=== PATIENT | female | born 1995 | race Caucasian/White ===

== ENCOUNTER 2022-07-08 20:25 | Inpatient (IN) ==
[2022-07-08] MEDS ORDERED: OXYTOCIN 30 UNITS/500 ML BAG IV PRN (21:14)
[2022-07-08] MEDS ORDERED: LIDOCAINE 1% LOCAL 20 ML VIAL INFIL PRN (21:14)
--- NOTE | 2022-07-08 21:18 | History & Physical Report ---
Date of Service July 08, 2022 Assessment & Plan (1) Supervision of normal intrauterine in primigravida: Plan: Admit to L&D. EFM/toco. Labs. IV fluids. OK for epidural when she desires. History of Present Illness Chief Complaint: labor Primary Care Provider: LYNDSEY PCP 26yo @ 39 6/7, spontaneous labor. Contractions getting stronger throughout the day. No leaking fluid. No vaginal bleeding. +FM Allergies Allergy/AdvReac Type Severity Reaction Status Date / Time nickel Allergy Rash Verified 07/08/22 20:39 Home Medications Medication Instructions Recorded Confirmed Type prenat.vits,rosmery,msi-hokh-olexj 1 tab PO DAILY 12/01/21 07/08/22 History aspirin 81 mg chewable tablet 81 mg PO DAILY 07/01/22 07/08/22 History Patient History Medical History (Updated 07/08/22 @ 20:38 by Rebekah Davis RN) No known health problems Family History Father Diabetes Social History (Updated 12/01/21 @ 07:42 by Kriss Koroma) Smoking Status: Never smoker Do You Dip or Chew Tobacco: No; Hx Alcohol Use: No Hx Substance Use: No Preferred Language: [place] Communication Ability: Effective Director Motion Picture Required: Voice Beliefs That Will Affect Care: None marital status: marital status details: Amor (25) [phone] Current Living Situation: Spouse Current Living Situation Comment: lives with spouse, 1 dog. current occupational status: student current occupation: finishing up Master's degree. Other Information That Helps Us Care for You: No Feels Safe at Home: Yes Safety Concerns: Feels Safe At This Time Assistive Devices: Glasses Review of Systems All systems reviewed & are unremarkable except as noted in HPI & below Physical Exam Physical Exam: FHT Cat 1 [place] Q1-2 SVE 6/100/-1, bulging membranes Constitutional: WD/WN, vitals as above Respiratory: normal respiratory effort, lungs clear to auscultation no respiratory distress Cardiovascular: Rate/Rhythm: regular rate and regular rhythm Gastrointestinal (Abdomen): Inspection/Auscultation: abdomen normal to inspection Percussion/Palpation: abdomen soft; abdomen nontender Gravid. No s/s chorio or abruption. Skin: no rashes, warm and dry Psychiatric: A+Ox3, euthymic affect Results & Data Vital Signs (Past 12 Hours) Vital Signs Temp Pulse Resp BP 07/08/22 20:40 36.6 C 18 07/08/22 20:35 61 137/81 Coding Level of Care Code None Diagnoses Supervision of normal intrauterine in primigravida Z34.00
[2022-07-08] MEDS: LACTATED RINGER'S 1,000 ML IV PRN ×2 (21:20→22:21)
[2022-07-08] MEDS ORDERED: fentaNYL citrate PF 100 MCG/2 ML VIAL ONE (21:29)
[2022-07-08] MEDS ORDERED: SODIUM CHLORIDE 0.9% PF INJ 10 ML VIAL ONE (21:29)
[2022-07-08] MEDS ORDERED: ePHEDrine sulfate 50 MG/ML AMP ONE (21:29)
[2022-07-08] MEDS ORDERED: BUPIVACAINE 0.25% PF 30 ML VIAL ONE (21:29)
[2022-07-08] MEDS ORDERED: LIDOCAINE 2%/EPINEPHRINE 1:200,000 20 ML PF ONE (21:30)
[2022-07-08] MEDS ORDERED: fentaNYL 2MCG/ML ROPIVACAINE 1.25MG/ML 100 ML BAG EPI ONE (21:30)
[2022-07-08 21:59] LABS: Hematocrit (blood only) 34.1 % (37.0-47.0); Hemoglobin 11.5 g/dl (12.0-16.0); Mean Corpuscular Hemoglobin 28.3 pg (25.0-34.0); Mean Corpuscular Hgb Conc 33.7 g/dL (32.0-36.0); Mean Corpuscular Volume 83.8 fL (80.0-100.0); Mean Platelet Volume 10.9 fL (9.4-12.4); Platelet Count 185 K/uL (130-400); RDW Coefficient of Variation 14.5 % (11.5-14.5); RDW Standard Deviation 44.2 fL (36.4-46.3); Red Blood Count 4.07 M/uL (4.20-5.40); White Blood Count 15.61 K/ul (4.8-10.8)
--- NOTE | 2022-07-08 22:53 | Anesthesiology Consultation ---
Date of Service July 08, 2022 Assessment & Plan Chart Review Chart Review: Acceptable Risk for Labor Epidural Consults Requested none History Height/Weight Height: 5 ft 7 in Weight: 83.007 kg Allergies Allergy/AdvReac Type Severity Reaction Status Date / Time nickel Allergy Rash Verified 07/08/22 20:39 Medications Home Medications Medication Instructions Recorded Confirmed Last Taken prenat.vits,rosmery,bcp-dehm-liioe 1 tab PO DAILY 12/01/21 07/08/22 07/07/22 aspirin 81 mg chewable tablet 81 mg PO DAILY 07/01/22 07/08/22 07/07/22 Active Medications Generic Name Dose Route Start Last Admin Trade Name Freq PRN Reason Stop Dose Admin Lactated Ringer's 1,000 mls @ 125 mls/hr 07/08/22 21:14 07/08/22 22:21 Lr IV 07/10/22 21:13 125 mls/hr .Q8H PRN Administration L&D Protocol Protocol Past Medical History Medical History (Updated 07/08/22 @ 20:38 by Rebekah Davis RN) No known health problems Past Family History Family History Father Diabetes Social History Smoking Status: Never smoker Do You Dip or Chew Tobacco: No Hx Alcohol Use: No Hx Substance Use: No substance use type: does not use Physical Exam Vital Signs Last Vital Signs Temp 36.6 C 07/08/22 22:14 Pulse 83 07/08/22 22:50 Resp 18 07/08/22 22:46 BP 107/57 L 07/08/22 22:50 Pulse Ox 96 07/08/22 22:47 Testing Laboratory Results 07/08/22 21:23
[2022-07-08] MEDS ORDERED: LIDOCAINE 2%/EPINEPHRINE 1:200,000 20 ML PF EPI STA (22:54)
[2022-07-08] MEDS ORDERED: BUPIVACAINE 0.25% PF 30 ML VIAL EPI PRN (22:54)
[2022-07-08] MEDS ORDERED: diphenhydrAMINE 50 MG/ML VIAL IV PRN (22:54)
[2022-07-08] MEDS ORDERED: ROPIVACAINE 0.5% PF 5 MG/ML 20 ML VIAL EPI PRN (22:54)
[2022-07-08] MEDS ORDERED: SODIUM CHLORIDE 0.9% PF INJ 10 ML VIAL EPI STA (22:54)
[2022-07-08] MEDS ORDERED: NALOXONE HCL 1 MG in SODIUM CHLORIDE 0.9% 1000ML 1,000 ML IV PRN (22:54)
[2022-07-08] MEDS ORDERED: SODIUM CHLORIDE 0.9% PF INJ 10 ML VIAL EPI PRN (22:54)
[2022-07-08] MEDS ORDERED: ONDANSETRON INJ 2 MG/ML 2 ML VIAL IV PRN (22:54)
[2022-07-08] MEDS ORDERED: NALOXONE HCL 0.4 MG/1 ML VIAL/CARP IV PRN (22:54)
[2022-07-08] MEDS ORDERED: NALBUPHINE HCL INJ 10 MG/ML AMP IV PRN (22:54)
[2022-07-08] MEDS ORDERED: ePHEDrine sulfate 50 MG/ML AMP IV PRN (22:54)
[2022-07-08] MEDS ORDERED: fentaNYL citrate PF 100 MCG/2 ML VIAL EPI PRN (22:54)
[2022-07-08] MEDS ORDERED: BUPIVACAINE 0.25% PF 30 ML VIAL EPI STA (22:54)
[2022-07-08] MEDS ORDERED: LIDOCAINE 2% MPF LOCAL 5 ML VIAL EPI PRN (22:54)
[2022-07-08] MEDS ORDERED: fentaNYL 2MCG/ML ROPIVACAINE 1.25MG/ML 100 ML BAG EPI PRN (22:54)
[2022-07-08] MEDS ORDERED: fentaNYL citrate PF 100 MCG/2 ML VIAL EPI STA (22:54)
--- NOTE | 2022-07-09 02:51 | Delivery Summary ---
Vaginal Delivery Summary Date of Service July 09, 2022 Vaginal Delivery Summary and 2nd Degree LAC Vaginal Delivery Summary: Pre-delivery diagnoses: 26yo @ 40 0/7, spontaneous labor Post-delivery diagnoses: same Procedure: spontaneous vaginal delivery, repair of 2nd degree perineal laceration Surgeon: Ju Tomlin DO Complications: none Findings: Viable male . Apgars: 8/9. Weight pending, please see nursery records Estimated blood loss: 300ml Description of delivery: The patient progressed to complete with epidural anesthesia. She then began to push. She spontaneously vaginally delivered a viable from the cephalic presentation. The head delivered in TYRA position. Tight nuchal, unable to reduce - delivered through. The anterior shoulder delivered, followed by the posterior shoulder, followed by the body. The baby was placed on mother's abdomen and a spontaneous cry was heard. Delayed cord clamping was employed, and the cord was doubly clamped and cut. Cord blood was obtained. The placenta was delivered spontaneously intact with a 3-vessel cord. The uterus and vagina were swept of clots and debris. IV pitocin was given. The uterus became firm. The cervix, vagina, and perineum were inspected and a 2nd degree perineal laceration was noted. The anal sphincter muscle was intact. The anal sphincter muscle's fascia was reapproximated with a figure of eight stitch of 3-0 Chromic. The remaining laceration was reapproximated with 3-0 Vicryl. Excellent hemostasis was observed. The mother and baby are recovering in stable and good condition in the room. Sponge, needle and instrument counts were correct x 2. Ju Tomlin DO [facility] V[facility] Delivery Charge Vaginal Delivery Codes: 94511 global code for the antepartum, delivery, and post- Delivery Type Details: and 2nd Degree LAC
[2022-07-09] MEDS ORDERED: MEASLES, MUMPS & RUBELLA VIRUS VIAL SQ ONE (03:01)
[2022-07-09] MEDS ORDERED: oxyCODONE/ACETAMINOPHEN 5mg/325mg TAB PO PRN (03:01)
[2022-07-09] MEDS ORDERED: ACETAMINOPHEN 325 MG TAB PO PRN (03:01)
[2022-07-09] MEDS ORDERED: OXYTOCIN 30 UNITS/500 ML BAG IV PRN (03:01)
[2022-07-09] MEDS ORDERED: HYDROCORTISONE ACETATE 25 MG SUPP PR PRN (03:01)
[2022-07-09] MEDS ORDERED: BENZOCAINE 20% AER SPR 82.5 GM CAN EXT PRN (03:01)
[2022-07-09] MEDS ORDERED: DIPHTHERIA/TETANUS/PERTUSSIS Vaccine (Tdap, Age 7+yrs) 0.5mL SYR/VL IM ONE (03:01)
[2022-07-09] MEDS: IBUPROFEN 600 MG TAB PO PRN ×3 (05:03→19:28)
[2022-07-09] MEDS ORDERED: PRENATAL VITAMIN 1 TAB PO SCH (08:00)
--- NOTE | 2022-07-09 08:25 | Anesthesia Procedure Note ---
Date of Service July 09, 2022 Anesthesia Post Epidural Note Vital Signs Vital Signs: Temp Pulse Resp BP Pulse Ox O2 Del Method 97.9 F 77 18 107/68 98 Room Air 07/09/22 07:30 07/09/22 07:30 07/09/22 07:30 07/09/22 07:30 07/09/22 07:30 07/09/22 07:30 Pain Intensity Episiotomy/Laceration: Pain Intensity: 1 Notes Mental Status: alert / awake / arousable and participated in evaluation Nausea / Vomiting: adequately controlled Pain: adequately controlled Airway Patency, RR, SpO2: stable & adequate BP & HR: stable & adequate Hydration State: stable & adequate Neuraxial Anesthesia: was administered and sensory block is resolving Anesthetic Complications: no major complications apparent and Pt Satisfied with anesthetic care Epidural: Removed without complications and With tip intact
[2022-07-09] MEDS: DOCUSATE SODIUM 100 MG CAP PO SCH ×2 (08:30→20:59)
[2022-07-10 07:29] LABS: Hematocrit (blood only) 35.2 % (37.0-47.0); Hemoglobin 11.4 g/dl (12.0-16.0)
--- NOTE | 2022-07-10 08:23 | Obstetrical Progress Note ---
Date of Service July 10, 2022 Assessment & Plan (1) Supervision of normal intrauterine in primigravida: PPD#1 doing well. Desires DC home. No concerns. Reviewed instructions. Followup in 6w in office. Subjective Ambulation: ambulating normally Voiding: no voiding problems Diet Tolerance:: regular diet Lochia:: Moderate Review of Systems All systems reviewed & are unremarkable except as noted in HPI & below Physical Exam Constitutional WD/WN, vitals as above no acute distress Respiratory normal respiratory effort Cardiovascular Rate/Rhythm: regular rate and regular rhythm Gastrointestinal (Abdomen) Inspection/Auscultation: abdomen normal to inspection; abdomen not distended Percussion/Palpation: abdomen soft Genitourinary OB Exam Abdomen: + fundal height Fundus: + firm; not tender Results & Data Vital Signs (Past 12 Hours) Vital Signs Temp Pulse Resp BP Pulse Ox O2 Del Method 07/10/22 00:10 Room Air 07/10/22 00:10 36.4 C L 76 18 115/76 98 Room Air
[2022-07-10] MEDS ORDERED: MEASLES, MUMPS & RUBELLA VIRUS VIAL ONE (14:20)
[2022-07-10] MEDS ORDERED: bisacodyL 5 MG TABEC PO SCH (20:00)
[2022-07-11] MEDS ORDERED: bisacodyL 10 MG SUPP PR PRN (03:01)
== END 2022-07-10 15:30 | disposition home or self-care (01) | DRG 807 ==
LOC: OPB 20:25 → 4S1 20:26 → 4E2 07-09 06:33